=== PATIENT | female | born 1980 ===

== ENCOUNTER 2018-10-29 09:43 | Emergency (ER) | payer MEDICAID ==
[2018-10-29 09:51] VITALS: BP 141/88
--- NOTE | 2018-10-29 10:24 | XRay Report ---
Left forearm, 2 views INDICATION: Trauma/pain. COMPARISON: None. IMPRESSION: No acute osseous or soft tissue abnormality. No significant DJD. Signer Name: Duran Briggs Jr, MD Signed: 10/29/2018 10:20 AM Workstation Name: [id number]
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
== END 2018-10-29 12:23 | disposition home or self-care (01) ==
LOC: ED 09:43
DX: S50.02XA Contusion of left elbow, initial encounter (principal); Z79.899 Other long term (current) drug therapy; W50.0XXA Accidental hit or strike by another person, initial encounter; Y93.89 Activity, other specified; Y92.89 Other specified places as the place of occurrence of the external cause; Y99.8 Other external cause status

== ENCOUNTER 2020-11-27 02:12 | Emergency (ER) | payer MEDICAID, OTHER ==
[2020-11-27 02:42] VITALS: BP 124/69
[2020-11-27] MEDS ORDERED: HYDROcodone/ACETAMINOPHEN 5-325 MG TAB PO ONE (02:47)
[2020-11-27] MEDS ORDERED: hydrOXYzine HCL 25 MG TAB PO ONE (02:51)
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
--- NOTE | 2020-11-27 03:47 | Cat Scan Report ---
CT MAXILLOFACIAL WITHOUT CONTRAST INDICATION: fall down stairs. TECHNIQUE: All CT scans at this location are performed using CT dose reduction for ALARA by means of automated e xposure control. COMPARISON: None available. FINDINGS: FACIAL BONES: No fracture or other significant abnormality. PARANASAL SINUSES: There is mild mucosal thickening within the ethmoids and maxillary sinuses.. ORBITS: No significant abnormality. VISUALIZED INTRACRANIAL STRUCTURES: No significant abnormality. ADDITIONAL FINDINGS: There is significant preseptal left periorbital soft tissue swelling. IMPRESSION: 1. No acute fracture. No intraorbital or globe injury. Signer Name: Bashir Lamas MD Signed: 11/27/2020 3:43 AM Workstation Name: [id number]
--- NOTE | 2020-11-27 03:49 | Cat Scan Report ---
CT HEAD WITHOUT CONTRAST INDICATION: fall down stairs. TECHNIQUE: All CT scans at this location are performed using CT dose reduction for ALARA by means of automated e xposure control. COMPARISON: None available. FINDINGS: HEMORRHAGE: None. EXTRA-AXIAL SPACES: Normal in size and morphology for the patient's age. VENTRICULAR SYSTEM: Normal in size and morphology for the patient's age. BRAIN PARENCHYMA: No acute findings. MIDLINE SHIFT OR HERNIATION: None. SOFT TISSUES OF HEAD: Normal. CALVARIUM: Normal. ADDITIONAL FINDINGS: None. IMPRESSION: 1. No acute intracranial abnormality. Signer Name: Bashir Lamas MD Signed: 11/27/2020 3:45 AM Workstation Name: [id number]
--- NOTE | 2020-11-27 03:50 | XRay Report ---
RIGHT HAND 3 VIEWS INDICATION: fall down stairs. Right hand pain. COMPARISON: No relevant prior imaging study available. FINDINGS: No acute fracture or dislocation. No significant degenerative changes. No foreign bodies. IMPRESSION: 1. No acute findings. Signer Name: Bashir Lamas MD Signed: 11/27/2020 3:46 AM Workstation Name: [id number]
[2020-11-27] MEDS ORDERED: ONDANSETRON 4 MG ODT TAB PO ONE (04:08)
== END 2020-11-27 04:55 ==
LOC: ED 02:12
DX: S00.83XA Contusion of other part of head, initial encounter (principal); S60.221A Contusion of right hand, initial encounter; M19.90 Unspecified osteoarthritis, unspecified site; Y08.89XA Assault by other specified means, initial encounter; Y93.89 Activity, other specified; Y92.89 Other specified places as the place of occurrence of the external cause; Y99.8 Other external cause status
CPT/HCPCS: 36415; 70450; 70486; 84703; 99284; Q0162